=== PATIENT | female | born 2000 | race Caucasian/White ===

== ENCOUNTER 2019-03-05 18:35 | Emergency (ER) | payer BC, OTHER ==
--- OUTSIDE RECORDS SUMMARY | 2019-03-05 18:38 | XMS REPORT | Clinical Summary ---
:2000 Author Organization [facility] Address [address] [place] [address] Care Team Providers Name Role Phone Alejandro Jamison MD Primary Care Provider Allergies Active Allergy Reactions Severity Noted Date Comments Latex High 02/08/2017 Acetaminophen-Codeine High 02/08/2017 Medications Medication Sig Dispensed Refills Start Date End Date Status NORETHINDRONE-E.ESTRADIOL Take by mouth. 0 Active -IRON (LO LOESTRIN FE ORAL) Active Problems No known active problems Family History Relation Name Status Comments Father Alive Mother Alive Social History Tobacco Use Types Packs/Day Years Used Date Never Smoker Alcohol Use Drinks/Week oz/Week Comments No Sex Assigned at Date Recorded Not on file Job Start Date Occupation Industry Not on file Not on file Not on file Travel History Travel Start Travel End No recent travel history available. 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
[2019-03-05] MEDS ORDERED: NA CHLORIDE 0.9% 1,000 ML ONE ×2 (19:11→20:58)
[2019-03-05 19:49] LABS: Absolute Lymphocytes (CBC) 1.2 K/uL (0.7-4.9); Basophils % 0.6 % (0-1.3); Hematocrit 45.5 % (36.0-45.0); Lymphocytes % 23.3 % (15.3-44.8); MPV 9.2 fL (7.6-11.3); RBC Red Blood Cell Count 5.22 M/uL (3.86-4.86)
[2019-03-05 19:59] LABS: Protime INR 1.03
[2019-03-05 20:02] LABS: Urine Blood NEGATIVE (NEG); Urine Glucose NEGATIVE (NEG); Urine Protein NEGATIVE (NEG)
[2019-03-05 20:10] LABS: ALT/SGPT 29 U/L (12-78); AST/SGOT 15 U/L (15-37); Albumin 4.2 g/dL (3.4-5.0); Alkaline Phosphatase 47 U/L (45-117); BUN Blood Urea Nitrogen 10 mg/dL (7-18); Bicarbonate 28 mmol/L (21-32); Bilirubin Direct 0.1 mg/dL (0-0.2); Bilirubin Total 0.3 mg/dL (0.2-1.0); Glucose Level 151 mg/dL (74-106); Magnesium 1.9 mg/dL (1.8-2.4); NT PRO-BNP 11 pg/mL (<125); Potassium 3.9 mmol/L (3.5-5.1); Protein, Total 8.1 g/dL (6.4-8.2); Sodium Level 141 mmol/L (136-145); T3 Free 3.61 pg/mL (2.18-3.98); Troponin (Emerg Dept Use Only) < 0.02 ng/mL (0.0-0.045)
[2019-03-05 20:11] LABS: Barbiturates NEGATIVE (NEGATIVE); Benzodiazepines NEGATIVE (NEGATIVE); Cocaine NEGATIVE (NEGATIVE); METHAMPHETAM NEGATIVE (NEGATIVE); Methadone NEGATIVE (NEGATIVE); Opiates NEGATIVE (NEGATIVE); Phencyclidine NEGATIVE (NEGATIVE); THC Cannibis NEGATIVE (NEGATIVE)
--- NOTE | 2019-03-05 21:41 | ER ---
Nurse's Notes [facility] Name: Kathie Elliott Age: 18 yrs Sex: Female : 2000 Arrival Date: 03/05/2019 Time: 18:36 Bed 19 [facility] MD: Alejandro Jamison Diagnosis: Palpitations Presentation: 03/05 18:37 Presenting complaint: Palpitations, intermittent substernal chest pain, and SOB x 3-4 hb hrs. Denies cough/fever. Transition of care: patient was not received from another setting of care. Onset of symptoms was March 05, 2019. Risk Assessment: Do you want to hurt yourself or someone else? Patient reports no desire to harm self or others. Care prior to arrival: None. 18:37 Method Of Arrival: Ambulatory hb 18:37 Acuity: TITUS 3 hb 19:05 Initial Sepsis Screen: Does the patient meet any 2 criteria? HR > 90 bpm. Does the cc3 patient have a suspected source of infection? No. Patient's initial sepsis screen is negative. Triage Assessment: 19:05 General: Appears in no apparent distress. uncomfortable, Behavior is cooperative, cc3 appropriate for age, anxious. Pain: Denies pain. Respiratory: Reports shortness of breath at rest on exertion Onset: The symptoms/episode began/occurred since she was started on steroids on 02/17/19, the patient has mild shortness of breath. 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 - Social history:: Smoking status: Patient/guardian denies using tobacco. - Ebola Screening: : No symptoms or risks identified at this time. Screenin:05 Abuse screen: Denies threats or abuse. Denies injuries from another. Nutritional cc3 screening: No deficits noted. Tuberculosis screening: No symptoms or risk factors identified. Fall Risk Ambulatory Aid- None/Bed Rest/Nurse Assist (0 pts). Gait- Normal/Bed Rest/Wheelchair (0 pts) Mental Status- Oriented to own ability (0 pts). Assessment: 19:05 General: Appears in no apparent distress. uncomfortable, Behavior is cooperative, cc3 appropriate for age, anxious. Pain: Denies pain. Neuro: Level of Consciousness is awake, alert, obeys commands, Oriented to person, place, time, situation, Appropriate for age. Cardiovascular: Denies chest pain, Capillary refill < 3 seconds Patient's skin is warm and dry. Rhythm is regular. Respiratory: Airway is patent Respiratory effort is even, unlabored, Respiratory pattern is regular, symmetrical. GI: Abdomen is flat. : No signs and/or symptoms were reported regarding the genitourinary system. EENT: No signs and/or symptoms were reported regarding the EENT system. Derm: Skin is intact, is healthy with good turgor, Skin is pink, warm \T\ dry. normal. Musculoskeletal: Circulation, motion, and sensation intact. Range of motion: intact in all extremities. 19:05 Respiratory: Breath sounds are clear bilaterally. cc3 20:18 Reassessment: Patient appears in no apparent distress at this time. Patient and/or cc3 family updated on plan of care and expected duration. Pain level reassessed. Patient is alert, oriented x 3, equal unlabored respirations, skin warm/dry/pink. Patient denies pain at this time. 21:30 Reassessment: Patient appears in no apparent distress at this time. Patient and/or cc3 family updated on plan of care and expected duration. Pain level reassessed. Patient is alert, oriented x 3, equal unlabored respirations, skin warm/dry/pink. Patient denies pain at this time. Patient states feeling better. Patient states symptoms have improved. 22:00 Reassessment: Patient appears in no apparent distress at this time. Patient and/or cc3 family updated on plan of care and expected duration. Pain level reassessed. Patient is alert, oriented x 3, equal unlabored respirations, skin warm/dry/pink. PA Page discharged the patient home, no prescription given. IV cannula removed and patient left ER vitally stable and ambulatory with her mother. No valuables left in the patient's room. Patient denies pain at this time. Patient states feeling better. Patient states symptoms have improved. Vital Signs: 18:40 BP 136 / 92; Pulse 124; Resp 16; Temp 97.8; Pulse Ox 99% on R/A; Weight 54.43 kg; hb Height 5 ft. 7 in. (170.18 cm); Pain 5/10; 19:45 BP 124 / 87; Pulse 107; Resp 18 S; Pulse Ox 100% on R/A; cc3 20:15 BP 124 / 88; Pulse 118; Resp 18 S; Pulse Ox 100% on R/A; Pain 0/10; cc3 21:30 BP 122 / 90; Pulse 114; Resp 16 S; Pulse Ox 100% on R/A; Pain 0/10; cc3 22:00 BP 111 / 82; Pulse 110; Resp 18 S; Pulse Ox 100% on R/A; Pain 0/10; cc3 18:40 Body Mass Index 18.79 (54.43 kg, 170.18 cm) hb ED Course: 18:36 Patient arrived in ED. am2 18:37 Alejandro Jamison MD is Private Physician. am2 18:40 Triage completed. hb 18:40 Arm band placed on. hb 18:55 Umair Lopez PA is PHCP. cp 18:55 Bryn Morgan MD is Attending Physician. cp 19:02 Anu Ferrara is Primary Nurse. cc3 19:05 Patient has correct armband on for positive identification. Placed in gown. Bed in low cc3 position. Call light in reach. Side rails up X 1. campus monitor on. Pulse ox on. NIBP on. 19:30 Inserted saline lock: 20 gauge in right antecubital area, using aseptic technique. cc3 Blood collected. 21:40 Mich Montoya MD is Referral Physician. cp 22:00 No provider procedures requiring assistance completed. IV discontinued, intact, cc3 bleeding controlled, No redness/swelling at site. Pressure dressing applied. Administered Medications: 19:30 Drug: NS 0.9% 1000 ml Route: IV; Rate: 1 bolus; Site: right antecubital; cc3 20:20 Follow up: Response: No adverse reaction; IV Status: Completed infusion; IV Intake: cc3 1000ml 20:50 Drug: NS 0.9% 1000 ml Route: IV; Rate: 1 bolus; Site: right antecubital; cc3 21:40 Follow up: Response: No adverse reaction; IV Status: Completed infusion; IV Intake: cc3 1000ml Intake: 20:20 IV: 1000ml; Total: 1000ml. cc3 21:40 IV: 1000ml; Total: 2000ml. cc3 Outcome: 21:40 Discharge ordered by . cp 22:00 Discharged to home ambulatory, with family. cc3 22:00 Condition: stable 22:00 Discharge instructions given to patient, family, Instructed on discharge instructions, follow up and referral plans. Demonstrated understanding of instructions, follow-up care. 22:09 Patient left the ED. cc3 Signatures: Umair Lopez PA PA cp Baxter, Heather, RN RN hb Moreno, Amanda am2 Cordel, Charlene cc3 Corrections: (The following items were deleted from the chart) 20:54 20:15 BP 124 / 88; Pulse 107bpm; Resp 18bpm; Spontaneous; Pulse Ox 100% RA; cc3 cc3 22:48 20:15 BP 124 / 88; Pulse 118bpm; Resp 18bpm; Spontaneous; Pulse Ox 100% RA; cc3 cc3 22:48 21:30 BP 122 / 90; Pulse 114bpm; Resp 16bpm; Spontaneous; Pulse Ox 100% RA; cc3 cc3 22:48 22:00 BP 111 / 82; Pulse 110bpm; Resp 18bpm; Spontaneous; Pulse Ox 100% RA; cc3 cc3
--- NOTE | 2019-03-05 21:41 | EDPHYS ---
Physician Documentation [facility] Name: Kathie Elliott Age: 18 yrs Sex: Female : 2000 Arrival Date: 03/05/2019 Time: 18:36 Bed 19 Private MD: Alejandro Jamison ED Physician Bryn Morgan HPI: 03/05 19:00 This 18 yrs old Female presents to ER via Ambulatory with complaints of cp Breathing Difficulty, Palpitations. 19:00 The patient presents with a history of heart racing. cp 19:00 Context: The symptoms occur at rest. cp 19:00 Onset: The symptoms/episode began/occurred today, 4 hour(s) ago. cp 19:00 Duration: The patient or guardian reports a single episode, that is still ongoing. cp Associated signs and symptoms: Pertinent positives: chest pain, SOB. 19:00 Mother reports patient having similar episodes recently that they thought were due to cp to the oral prednisone patient was taking, but patient has not taken prednisone for about 1 week. Patient reports drinking 1 cup coffee today, denies use of drugs or drinking energy drinks. 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 - Social history:: Smoking status: Patient/guardian denies using tobacco. - Ebola Screening: : No symptoms or risks identified at this time. ROS: 19:05 Constitutional: Negative for body aches, chills, fever, poor PO intake. cp 19:05 Eyes: Negative for injury, pain, redness, and discharge. cp 19:05 ENT: Negative for drainage from ear(s), ear pain, sore throat, difficulty swallowing, difficulty handling secretions. 19:05 Cardiovascular: Positive for chest pain, palpitations, Negative for edema. 19:05 Respiratory: Positive for shortness of breath, Negative for cough, wheezing. 19:05 Abdomen/GI: Negative for abdominal pain, nausea, vomiting, and diarrhea. 19:05 Neuro: Negative for altered mental status, headache, numbness, syncope, tingling, weakness. 19:05 All other systems are negative. Exam: 19:10 ECG was reviewed by the Attending Physician. cp 19:12 Constitutional: The patient appears in no acute distress, alert, awake, cp non-diaphoretic, non-toxic, well developed, well nourished, anxious, tearful 19:12 Head/Face: Normocephalic, atraumatic. Eyes: Pupils equal round and reactive to light, cp extra-ocular motions intact. Lids and lashes normal. Conjunctiva and sclera are non-icteric and not injected. Cornea within normal limits. Periorbital areas with no swelling, redness, or edema. ENT: Nares patent. No nasal discharge, no septal abnormalities noted. Tympanic membranes are normal and external auditory canals are clear. Oropharynx with no redness, swelling, or masses, exudates, or evidence of obstruction, uvula midline. Mucous membranes moist. Neck: Trachea midline, no thyromegaly or masses palpated, and no cervical lymphadenopathy. Supple, full range of motion without nuchal rigidity, or vertebral point tenderness. No Meningismus. Chest/axilla: Normal chest wall appearance and motion. Nontender with no deformity. No lesions are appreciated. 19:12 Cardiovascular: Rate: tachycardic, Rhythm: regular, Heart sounds: murmur, not appreciated, Edema: is not appreciated, JVD: is not appreciated. 19:12 Respiratory: the patient does not display signs of respiratory distress, Respirations: normal, no use of accessory muscles, no retractions, no splinting, no tachypnea, labored breathing, is not present, Breath sounds: are clear throughout, no decreased breath sounds, no stridor, no wheezing. 19:12 Abdomen/GI: Inspection: abdomen appears normal, Palpation: abdomen is soft and non-tender, in all quadrants. 19:12 Back: pain, is absent, ROM is normal. 19:12 Neuro: Orientation: to person, place \T\ time. Mentation: is normal, Cerebellar function: is grossly normal, Motor: moves all fours, strength is normal, Sensation: is normal. Vital Signs: 18:40 BP 136 / 92; Pulse 124; Resp 16; Temp 97.8; Pulse Ox 99% on R/A; Weight 54.43 kg; hb Height 5 ft. 7 in. (170.18 cm); Pain 5/10; 19:45 BP 124 / 87; Pulse 107; Resp 18 S; Pulse Ox 100% on R/A; cc3 20:15 BP 124 / 88; Pulse 118; Resp 18 S; Pulse Ox 100% on R/A; Pain 0/10; cc3 21:30 BP 122 / 90; Pulse 114; Resp 16 S; Pulse Ox 100% on R/A; Pain 0/10; cc3 22:00 BP 111 / 82; Pulse 110; Resp 18 S; Pulse Ox 100% on R/A; Pain 0/10; cc3 18:40 Body Mass Index 18.79 (54.43 kg, 170.18 cm) hb MDM: 19:00 Patient medically screened. cp 21:40 Data reviewed: vital signs, nurses notes, lab test result(s), EKG, and as a result, I cp will discharge patient. 21:40 Test interpretation: by ED physician or midlevel provider: ECG. 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 Response to treatment: the patient's symptoms have markedly improved after treatment, and as a result, I will discharge patient. 03/05 19:01 Order name: Basic Metabolic Panel cp 03/05 19:01 Order name: CBC with Diff cp 03/05 19:01 Order name: LFT's cp 03/05 19:01 Order name: Magnesium cp 03/05 19:01 Order name: NT PRO-BNP cp 03/05 19:01 Order name: PT-INR cp 03/05 19:01 Order name: Troponin (emerg Dept Use Only) cp 03/05 19:01 Order name: UDS cp 03/05 19:01 Order name: TSH cp 03/05 19:01 Order name: T3 Free cp 03/05 19:01 Order name: D-Dimer cp 03/05 19:50 Order name: Urine Dipstick--Ancillary (enter results) ar 03/05 19:50 Order name: Urine --Ancillary (enter results) ar 03/05 19:50 Order name: CBC with Automated Diff; Complete Time: 20:41 EDMS 03/05 20:45 Interpretation: Normal except: RBC 5.22; HGB 15.8; HCT 45.5. cp 03/05 19:01 Order name: EKG; Complete Time: 19:03 03/05 19:01 Order name: Cardiac monitoring; Complete Time: 19:34 03/05 20:01 Order name: Protime (+INR); Complete Time: 20:41 EDMS 03/05 20:02 Order name: D-Dimer; Complete Time: 20:41 EDMS 03/05 20:03 Order name: Urine --Ancillary; Complete Time: 20:41 EDNM 03/05 20:03 Order name: Urine Dipstick-Ancillary; Complete Time: 20:41 EDNM 03/05 20:11 Order name: Basic Metabolic Panel; Complete Time: 20:41 EDMS 03/05 20:45 Interpretation: Normal except: GLUC 151; GFR 79. cp 03/05 20:11 Order name: Liver (Hepatic) Function; Complete Time: 20:41 EDNM 03/05 20:11 Order name: Troponin (Emerg Dept Use Only); Complete Time: 20:41 EDNM 03/05 20:11 Order name: NT PRO-BNP; Complete Time: 20:41 EDNM 03/05 20:11 Order name: T3 Free; Complete Time: 20:41 [facility] 03/05 20:12 Order name: Magnesium; Complete Time: 20:41 [facility] 03/05 20:12 Order name: Thyroid Stimulating Hormone; Complete Time: 20:41 [facility] 03/05 20:12 Order name: Urine Drug Screen; Complete Time: 20:41 EDNM 03/05 19:01 Order name: EKG - Nurse/Tech; Complete Time: 19:34 03/05 19:01 Order name: IV Saline Lock; Complete Time: 19:34 03/05 19:01 Order name: Labs collected and sent; Complete Time: 19:34 03/05 19:01 Order name: O2 Per Protocol; Complete Time: 19:34 cp 03/05 19:01 Order name: O2 Sat Monitoring; Complete Time: 19:34 cp 03/05 19:01 Order name: Urine Dipstick-Ancillary (obtain specimen); Complete Time: 19:47 cp 03/05 19:01 Order name: Urine Test (obtain specimen); Complete Time: 19:47 cp EC:10 Rate is 132 beats/min. Rhythm is regular. PA interval is normal. QRS interval is cp normal. QT interval is normal. Interpreted by me. Reviewed by me. Administered Medications: 19:30 Drug: NS 0.9% 1000 ml Route: IV; Rate: 1 bolus; Site: right antecubital; cc3 20:20 Follow up: Response: No adverse reaction; IV Status: Completed infusion; IV Intake: cc3 1000ml 20:50 Drug: NS 0.9% 1000 ml Route: IV; Rate: 1 bolus; Site: right antecubital; cc3 21:40 Follow up: Response: No adverse reaction; IV Status: Completed infusion; IV Intake: cc3 1000ml Disposition: 03/06 08:07 Co-signature as Attending Physician, Bryn Morgan MD I agree with the assessment and kdr plan of care. Disposition: 03/05/19 21:40 Discharged to Home. Impression: Palpitations. - Condition is Stable. - Discharge Instructions: Holter Monitoring, Palpitations. - Medication Reconciliation Form, Thank You Letter, Antibiotic Education, Prescription Opioid Use form. - Follow up: Mich Montoya MD; When: 1 - 2 days; Reason: Recheck today's complaints. - Problem is new. - Symptoms have improved. Signatures: Dispatcher [employer] EDMS Bryn Morgan MD MD kdr Umair Lopez PA PA cp Steph Lanier, ZAC RN Anu Ferrara cc3 Corrections: (The following items were deleted from the chart) 03/05 22:09 21:40 03/05/2019 21:40 Discharged to Home. Impression: Palpitations. Condition is cc3 Stable. Forms are Medication Reconciliation Form, Thank You Letter, Antibiotic Education, Prescription Opioid Use. Follow up: Mich Montoya; When: 1 - 2 days; Reason: Recheck today's complaints. Problem is new. Symptoms have improved. cp
[2019-03-05 22:35] VITALS: TEMP 97.8
[2019-03-05 22:37] VITALS: O2SAT 100
[2019-03-05 22:39] VITALS: BP 122/90
--- NOTE | 2019-03-06 10:33 | EKG ---
Test Date: 2019-03-05 Test Time: 18:58:51 Preparation Supervisor: AGA MEASUREMENT RESULTS: Intervals: Rate: 132 MN: 160 QRSD: 84 QT: 376 QTc: 557 [place]: P: 70 MN: 160 QRS: 95 T: 45 INTERPRETIVE STATEMENTS: Sinus tachycardia Rightward axis Nonspecific T wave abnormality Abnormal ECG No previous ECG available for comparison Electronically Signed On 03-06-19 10:31:35 CDT by Sinan Lubin
== END 2019-03-05 22:09 | disposition home or self-care (01) ==
LOC: ER 18:35
DX: R00.2 Palpitations (principal); Z88.6 Allergy status to analgesic agent; Z91.040 Latex allergy status
CPT/HCPCS: 96361; 93005; 85025; 80048; 36415; 83735; 81025; 85610; 85379; 80076; 80307 ×8; 84443; 81003; 84484; 84481; 83880; 96360; 99284; J7030 ×2

== ENCOUNTER → 2022-11-21 | Day surgery (SDC) | payer BC, OTHER ==
--- NOTE | 2022-11-21 11:02 | RAD REPORT ---
EXAM DESCRIPTION: Ultrasound-guided vacuum assisted right breast core biopsy CLINICAL HISTORY: Breast mass N63.12 COMPARISON: BREAST/AXILLA, COMPLETE dated 11/07/2022 FINDINGS: Informed consent was obtained and time-out was performed. The patient's right breast was prepped and draped in the usual sterile fashion. 1% lidocaine was used for local anesthetic purposes. Utilizing aseptic technique and ultrasound guidance, a 12 gauge vacuum assisted core biopsy device wa s used to obtain single core specimens through the mass of interest 12 o'clock right breast. A post b iopsy clip was then placed. All collected material was sent for cytology. Patient tolerated procedure well. IMPRESSION: Successful ultrasound guided vacuum assisted right breast mass biopsy.
== END ==
LOC: DS 09:37
PROVIDERS: ATTEND Obstetrics & Gynecology
DX: N63.12 Unspecified lump in the right breast, upper inner quadrant (principal)
CPT/HCPCS: 19083; 88305

== ENCOUNTER 2023-01-29 00:23 | Emergency (ER) | payer BC, OTHER ==
[2023-01-29 02:11] LABS: Absolute Lymphocytes (CBC) 2.8 K/uL (0.7-4.9); Hematocrit 40.3 % (36.0-45.0); Lymphocytes % 42.8 % (15.3-44.8); MCV 87.4 fL (80-100); MPV 8.6 fL (7.6-11.3); Platelets 261 thou/uL (152-406); RBC Red Blood Cell Count 4.62 M/uL (3.86-4.86)
[2023-01-29 02:15] LABS: ALT/SGPT 21 U/L (13-56); AST/SGOT 13 U/L (15-37); Albumin 3.4 g/dL (3.4-5.0); Alkaline Phosphatase 55 U/L (45-117); BUN Blood Urea Nitrogen 11 mg/dL (7-18); Bicarbonate 27 mEq/L (21-32); Bilirubin Total 0.2 mg/dL (0.2-1.0); Glomerular Filtration Rate 120 ml/min (=/>90); Glucose Level 98 mg/dL (74-106); Potassium 3.5 mEq/L (3.5-5.1); Protein, Total 7.3 g/dL (6.4-8.2); Sodium Level 137 mEq/L (136-145)
[2023-01-29 02:16] LABS: Bilirubin Direct < 0.1 mg/dL (0-0.2); Bilirubin Indirect, Calculated ND mg/dL (0.2-0.8)
[2023-01-29 02:26] LABS: Specific Gravity 1.016 (1.005-1.030)
[2023-01-29 02:28] LABS: Specific Gravity 1.016 (1.005-1.030); Urine Bacteria None Seen /HPF (<20); Urine Bilirubin NEGATIVE (Negative); Urine Blood Trace (Negative); Urine Clarity Extremely Turbid (Clear); Urine Color Light-Yellow (Yellow); Urine Glucose NEGATIVE (Negative); Urine Protein NEGATIVE (Negative); Urine RBC <5 /HPF (None Seen); Urine Urobilinogen Normal (Normal); Urine pH 7.5 (5.0-7.0)
[2023-01-29 02:32] LABS: Barbiturates NEGATIVE (NEGATIVE); Benzodiazepines POSITIVE (NEGATIVE); Cocaine NEGATIVE (NEGATIVE); METHAMPHETAM NEGATIVE (NEGATIVE); Methadone NEGATIVE (NEGATIVE); Opiates NEGATIVE (NEGATIVE); Phencyclidine NEGATIVE (NEGATIVE); THC Cannibis NEGATIVE (NEGATIVE)
[2023-01-29 02:44] LABS: SARS-CoV-2 Antigen Rapid Res Negative (Negative)
--- NOTE | 2023-01-29 04:36 | EDPHYS ---
Physician Documentation [facility] Name: Kathie Elliott Age: 22 yrs Sex: Female : 2000 Arrival Date: 01/29/2023 Time: 00:23 Bed 7 Private MD: ED Physician Aureliano Santoyo HPI: 01/29 02:09 This 22 yrs old Female presents to ER via Ambulatory with complaints of NOT FEELING kb WELL. 02:09 Pt reports her psychiatrist changed her medication 2 weeks ago and since then she has kb had bad anxiety and depression. States she got very scared today because she was having suicidal thoughts and was going to overdose to kill herself. States she doesn't want to kill herself but had to come in because she "was going to take the whole bottle of pills even though she doesn't want to .". 02:11 The patient presents to the emergency department with anxiety, depression, suicide kb ideation, and the patient has a plan, to overdose with medications. Onset: The symptoms/episode began/occurred last week. Associated signs and symptoms: Pertinent positives; anxiety, depression, suicide ideation. Severity of symptoms: At their worst the symptoms were moderate in the emergency department the symptoms are unchanged. The patient has experienced similar episodes in the past. The patient has not recently seen a physician. 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 - Social history:: Smoking status: Patient denies any tobacco usage or history of. ROS: 02:08 Constitutional: Negative for fever, chills, and weight loss. kb 02:08 Psych: Positive for anxiety, depression, suicidal ideation. 02:08 All other systems are negative. Exam: 01:42 Constitutional: This is a well developed, well nourished patient who is awake, alert, kb and in no acute distress. Head/Face: Normocephalic, atraumatic. ENT: Moist Mucous membranes Cardiovascular: Regular rate and rhythm with a normal S1 and S2. No gallops, murmurs, or rubs. No pulse deficits. Respiratory: Respirations even and unlabored. No increased work of breathing. Talking in full sentences Abdomen/GI: Soft, non-tender. No distention Skin: Warm, dry with normal turgor. Normal color. MS/ Extremity: Pulses equal, no cyanosis. Neurovascular intact. Full, normal range of motion. Neuro: Awake and alert, GCS 15, oriented to person, place, time, and situation. Moves all extremities. Normal gait. 01:42 ECG was reviewed by the Attending Physician. 02:08 Psych: Behavior/mood is cooperative, anxious, Affect is animated, Oriented to person, kb place, time, Patient having thoughts of suicide. Plan for suicide is overdose 04:32 Psych: Patient having thoughts of suicide. sp4 Vital Signs: 00:27 Weight 68.04 kg; Height 5 ft. 7 in. ; Pain 6/10; vc1 00:42 BP 119 / 118; Pulse 83; Resp 18; Temp 98.4; Pulse Ox 100% ; vc1 02:50 BP 108 / 58; Pulse 89; Resp 18; Pulse Ox 100% on R/A; oe 00:27 Body Mass Index 23.49 (68.04 kg, 170.18 cm) vc1 00:27 Pain Scale: Adult vc1 MDM: 00:25 Patient medically screened. kb 02:12 Differential diagnosis: drug withdrawal. depression, acute stress reaction. Data kb reviewed: vital signs, nurses notes. Transition of care: After a detail discussion of the patient's case, care is transferred to Aureliano Santoyo MD. 04:32 Differential Diagnosis altered mental status. Data reviewed: lab test result(s). sp4 Consideration of Admission/Observation Escalation of care including admission/observation considered. ED course: On repeat evaluation patient was offered admission to psychiatric hospital. Patient states that she is feeling better and denies any suicide plans, patient states that her thoughts have been ongoing and are chronic. At this time patient denies any suicidal intent. Patient reports that he has psychiatrist Dr. Shirley Yanes . ED course: Patient again declined admission to psychiatric hospital and wishes to be released home, will provide single dose p.o. Valium for anxiety at this time. Will advise close follow-up with psychiatrist on outpatient basis for management of anxiety and depression. Will advise return to the emergency room in case patient develops suicidal ideation or plan.. 04:47 ED course: On repeat assessment patient broke down and started crying and reports that sp4 she is not sure what to do. At this time we will consider emergent psychiatric hospitalization secondary to the uncertainty with respect to patient's problems. And also secondary to persistent suicidal thoughts. . 05:34 ED course: [facility] has accepted the patient.. sp4 01/29 00:32 Order name: Acetaminophen; Complete Time: 02:22 kb 01/29 00:32 Order name: Basic Metabolic Panel; Complete Time: 02:22 kb 01/29 00:32 Order name: CBC with Diff; Complete Time: 02:12 kb 01/29 00:32 Order name: ETOH Level; Complete Time: 02:12 kb 01/29 00:32 Order name: Hepatic Function; Complete Time: 02:22 kb 01/29 00:32 Order name: PT-INR; Complete Time: 02:03 kb 01/29 00:32 Order name: Test, Urine; Complete Time: 02:31 kb 01/29 00:32 Order name: Ptt, Activated; Complete Time: 02:03 kb 01/29 00:32 Order name: Salicylate; Complete Time: 02:12 kb 01/29 00:32 Order name: Urinalysis w/ reflexes; Complete Time: 02:31 kb 01/29 00:32 Order name: Urine Drug Screen; Complete Time: 02:34 kb 01/29 01:46 Order name: SARS-COV-2 Antigen Rapid; Complete Time: 04:05 kb 01/29 00:32 Order name: EKG; Complete Time: 00:33 kb 01/29 00:32 Order name: EKG - Nurse/Tech; Complete Time: 01:27 kb 01/29 00:32 Order name: IV Saline Lock; Complete Time: 02:00 kb 01/29 00:32 Order name: Labs collected and sent; Complete Time: 02:00 kb 01/29 00:32 Order name: Suicide Screening ([place]); Complete Time: 02:00 kb 01/29 02:07 Order name: Vital Signs; Complete Time: 02:51 kb EC:42 Rate is 82 beats/min. Rhythm is regular. QRS [place] is Normal. AR interval is normal at kb 158 msec. QRS interval is normal at 84 msec. QT interval is normal at 422 msec. Administered Medications: 04:55 Drug: Diazepam PO 5 mg Route: PO; jb4 Disposition: 02:59 Co-signature as Attending Physician, Aureliano Santoyo MD I agree with the assessment sp4 and plan of care. I reviewed the patient's care provided by Advanced Practice Provider \\T\\ agree w/ the diagnosis \\T\\ care plan. I personally saw the pt \\T\\ performed a substantive portion of the visit, incldng all aspects of the (History/Exam/Medical Decision Making). Disposition Summary: 01/29/23 04:47 Transfer Ordered Transfer Location: [facility] sp4 Reason: Higher level of care sp4 Condition: Stable(01/29/23 04:47) sp4 Problem: new(01/29/23 04:47) sp4 Symptoms: are unchanged(01/29/23 04:47) sp4 Accepting Physician: Attending psychiatrist(01/29/23 06:57) geremias Diagnosis - Anxiety disorder, unspecified(01/29/23 04:47) sp4 - Other recurrent depressive disorders(01/29/23 04:47) sp4 Discharge Instructions: - Discharge Summary Sheet rv1 Forms: - SBAR form rv1 - Medication Reconciliation Form sp4 Signatures: Dispatcher [employer] EDJesi Deleon, LIZETTE-Carlota CHIEF COUNSEL-Adrianne Miller RN RN kl Bryson, James, RN RN jbMariluz Kaufman RN RN vc1 Aureliano Santoyo MD MD sp4 Corrections: (The following items were deleted from the chart) 04:46 04:36 Home sp4 sp4 04:46 04:36 new sp4 sp4 04:46 04:36 have improved sp4 sp4 04:46 04:36 Stable sp4 sp4 04:46 04:36 Other recurrent depressive disorders sp4 sp4 04:46 04:36 Anxiety disorder, unspecified sp4 sp4 05:34 04:47 Attending psychiatrist mitra sp4 06:57 05:34 Attending psychiatrist mitra
--- NOTE | 2023-01-29 04:36 | ER ---
Nurse's Notes [facility] Name: Kathie Elliott Age: 22 yrs Sex: Female : 2000 Arrival Date: 01/29/2023 Time: 00:23 Bed 7 Private MD: Diagnosis: Anxiety disorder, unspecified;Other recurrent depressive disorders Presentation: 01/29 00:27 Chief complaint: Patient states: My Psychiatrist changed my medication a week ago, we vc1 tapered it down over 4 weeks. This is my first full week with out it. I feel extremely anxious and I'm having suicidal thoughts and it scares me because I don't want to hurt myself. 00:27 Coronavirus screen: Vaccine status: Patient reports receiving the 2nd dose of the covid vc1 vaccine. Arrively Client denies travel out of the [place] in the last 14 days. At this time, the client does not indicate any symptoms associated with coronavirus-19. Ebola Screen: Patient negative for fever greater than or equal to 101.5 degrees Fahrenheit, and additional compatible Ebola Virus Disease symptoms Patient denies exposure to infectious person. Patient denies travel to an Ebola-affected area in the 21 days before illness onset. No symptoms or risks identified at this time. Risk Assessment: Do you want to hurt yourself or someone else? Patient reports desire/thoughts of hurting themselves or someone else. Provider notified. Onset of symptoms was January 24, 2023. 00:27 Method Of Arrival: Ambulatory vc1 00:27 Acuity: TITUS 2 vc1 00:45 Initial Sepsis Screen: Does the patient meet any 2 criteria? No. Patient's initial vc1 sepsis screen is negative. Does the patient have a suspected source of infection? No. Patient's initial sepsis screen is negative. Triage Assessment: 00:36 General: Appears distressed, uncomfortable, Behavior is anxious, crying. General: vc1 Appears Behavior is. Pain: Complains of pain in top of head Pain does not radiate. Pain currently is 6 out of 10 on a pain scale. Quality of pain is described as dull, sharp, stabbing, Pain began few weeks. EENT: No deficits noted. No signs and/or symptoms were reported regarding the EENT system. Neuro: Reports headache frontal area. Cardiovascular: No deficits noted. Respiratory: Airway is patent Respiratory effort is even, unlabored, Respiratory pattern is regular, symmetrical. GI: No deficits noted. No signs and/or symptoms were reported involving the gastrointestinal system. : No deficits noted. No signs and/or symptoms were reported regarding the genitourinary system. Derm: No deficits noted. No signs and/or symptoms reported regarding the dermatologic system. Musculoskeletal: No deficits noted. No signs and/or symptoms reported regarding the musculoskeletal system. 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 - Social history:: Smoking status: Patient denies any tobacco usage or history of. Screenin:41 Abuse screen: Denies threats or abuse. Nutritional screening: No deficits noted. vc1 Tuberculosis screening: No symptoms or risk factors identified. Assessment: 00:46 General: Appears in no apparent distress. uncomfortable, Behavior is cooperative, jb4 anxious. Pain: Denies pain. Neuro: Level of Consciousness is awake, alert, obeys commands, Oriented to person, place, time, situation. Cardiovascular: Patient's skin is warm and dry. Respiratory: Airway is patent Respiratory effort is even, unlabored, Respiratory pattern is regular, symmetrical. GI: No signs and/or symptoms were reported involving the gastrointestinal system. : No signs and/or symptoms were reported regarding the genitourinary system. EENT: No signs and/or symptoms were reported regarding the EENT system. Derm: Skin is intact, Skin is pink, warm \\T\\ dry. Musculoskeletal: Circulation, motion, and sensation intact. Range of motion: intact in all extremities. 02:00 Reassessment: Patient appears in no apparent distress at this time. Patient and/or jb4 family updated on plan of care and expected duration. Pain level reassessed. Patient is alert, oriented x 3, equal unlabored respirations, skin warm/dry/pink. 03:00 Reassessment: Patient appears in no apparent distress at this time. Patient and/or jb4 family updated on plan of care and expected duration. Pain level reassessed. Patient is alert, oriented x 3, equal unlabored respirations, skin warm/dry/pink. 04:00 Reassessment: Patient appears in no apparent distress at this time. Patient and/or jb4 family updated on plan of care and expected duration. Pain level reassessed. Patient is alert, oriented x 3, equal unlabored respirations, skin warm/dry/pink. 04:40 Reassessment: Pt became very anxious and started crying. Stating" I don't know what to jb4 do!" pt asked if she felt safe to go home or if she wanted to be transferred pt responds " I don't know. I don't know what I should do." at this point ER physician recommended to pt to try inpatient care and and be transferred to psychiatric facility. Pt agreed to transfer. 05:39 Reassessment: Patient appears in no apparent distress at this time. Patient and/or jb4 family updated on plan of care and expected duration. Pain level reassessed. Patient is alert, oriented x 3, equal unlabored respirations, skin warm/dry/pink. Report given to Ap at [facility], and Mirna at [facility]. Psych: 00:38 Painter Suicide Severity Screening: In the past month, have you wished you were vc1 or wished you could go to sleep and not wake up? Patient responds "yes." Based off the client's responses additional C-SSRS screening is required. "In the past month, have you actually had any thoughts of killing yourself?" Patient responds "yes." Based off the client's response additional Painter suicide severity screening questions to be further documented on paper forms. Thought about finishing bottle of xanax "In your lifetime, have you ever done anything, started to do anything, or prepared to do anything to end your life?" Patient responds "no.". Subjective: Patient's mood is sad, Delusions are denied, Hallucinations are auditory, While trying to fall asleep hearing a clap on both sides of ears Having thoughts of suicide. Plan for suicide is finish the bottle of xanax. Objective: Patient is cooperative, Speech is normal, soft, Patient has mutilated themselves by In the past used to cut herself. Patient uses Occaisionally. Commitment: Patient will be an involuntary commitment. 01:37 Interventions: Removed personal items and placed in bag. Patient placed in hospital vc1 gown. Searched person for dangerous items. Urine collected and sent for urine drug test. Belonging list filled out. Safety Checks: Personal items have been removed. Door is open. brother. Vital Signs: 00:27 Weight 68.04 kg; Height 5 ft. 7 in. ; Pain 6/10; vc1 00:42 BP 119 / 118; Pulse 83; Resp 18; Temp 98.4; Pulse Ox 100% ; vc1 02:50 BP 108 / 58; Pulse 89; Resp 18; Pulse Ox 100% on R/A; oe 00:27 Body Mass Index 23.49 (68.04 kg, 170.18 cm) vc1 00:27 Pain Scale: Adult vc1 ED Course: 00:25 Patient arrived in ED. kj1 00:25 [facility] kb 00:25 Aureliano Santoyo MD is Attending Physician. kb 00:35 Triage completed. vc1 00:38 Arm band placed on right wrist. vc1 02:00 Inserted saline lock: 20 gauge in left antecubital area, using aseptic technique. Blood oe collected. 04:27 Shmuel Finnegan, RN is Primary Nurse. jb4 04:35 Joaquín Goff MD is Referral Physician. sp4 04:47 Faxed pt clinicals to the following facilities for placement; [address], [facility], [facility]. 05:20 pt accepted to [facility] by Dr. Villegas. rv1 Administered Medications: 04:55 Drug: Diazepam PO 5 mg Route: PO; jb4 Outcome: 04:36 Discharge ordered by . sp4 04:47 ER care complete, transfer ordered by . sp4 06:57 Patient left the ED. kl Signatures: Jesi Harvey FNP-C FNP-Adrianne Miller RN RN kl Bryson, James, RN RN jb4 Alejandro Richter oe Gaby Harvey kj1 Mariluz Marques RN RN vc1 Karrie Woodson rv1 Aureliano Santoyo MD MD sp4 Corrections: (The following items were deleted from the chart) 02:52 02:45 BP 108 / 58; Pulse 76bpm; Resp 16bpm; Pulse Ox 100% RA; jb4 jb4
[2023-01-29] MEDS ORDERED: DIAZEPAM 5 MG TABLET ONE (05:00)
[2023-01-29 07:12] VITALS: TEMP 98.4; O2SAT 100
[2023-01-29 07:18] VITALS: BP 108/58
--- NOTE | 2023-01-29 17:02 | EKG ---
Test Date: 2023-01-29 Test Time: 01:20:52 Press Brake Operator: PERLA MEASUREMENT RESULTS: Intervals: Rate: 82 DE: 158 QRSD: 84 QT: 362 QTc: 422 [place]: P: 60 DE: 158 QRS: 87 T: 55 INTERPRETIVE STATEMENTS: Normal sinus rhythm Normal ECG Compared to ECG 03/05/2019 18:58:51 Sinus tachycardia no longer present Right-axis deviation no longer present T-wave abnormality no longer present Electronically Signed On 01-29-23 17:00:59 CDT by Kannan Trujillo
== END 2023-01-29 06:57 ==
LOC: ER 00:23
DX: F33.8 Other recurrent depressive disorders (principal); Z20.822 Contact with and (suspected) exposure to COVID-19; Z88.5 Allergy status to narcotic agent; Z91.040 Latex allergy status; Z91.048 Other nonmedicinal substance allergy status
CPT/HCPCS: 36415; 80048; 80076; 80143; 80179; 80307; 81001; 81025; 82077; 85025; 85610; 85730; 87811; 93005; 99284

== ENCOUNTER → 2024-01-16 | Day surgery (SDC) | payer BC, OTHER ==
[2024-01-13 09:41] LABS: Absolute Eosinophils 0.3 K/uL (0-0.5); Absolute Lymphocytes (CBC) 1.4 K/uL (0.7-4.9); Absolute Monocytes 0.5 K/uL (0.1-1.3); Absolute Neutrophil 4.2 K/uL (1.8-8.0); Basophils % 0.6 % (0-1.3); Eosinophils % 4.8 % (0-4.4); Hematocrit 39.5 % (36.0-45.0); Hemoglobin 12.9 g/dL (12.0-15.0); Lymphocytes % 21.8 % (15.3-44.8); MCH 28.5 pg (27.0-35.0); MCHC 32.6 g/dL (32.0-36.0); MCV 87.3 fL (80-100); MPV 9.3 fL (7.6-11.3); Monocytes % 7.6 % (3.3-12.3); Neutrophils % 65.2 % (41.7-73.7); Platelets 270 thou/uL (152-406); RBC Red Blood Cell Count 4.52 M/uL (3.86-4.86); Red Cell Distribution Width 13.7 % (12.1-15.2)
[2024-01-13 10:00] LABS: Specific Gravity > 1.030 (1.005-1.030); Urine Bacteria None Seen /HPF (<20); Urine Bilirubin NEGATIVE (Negative); Urine Blood 3+ (OVER) (Negative); Urine Clarity Extremely Turbid (Clear); Urine Color Yellow (Yellow); Urine Culture Reflex Order NOT NEEDED; Urine Glucose NEGATIVE (Negative); Urine Ketones NEGATIVE (Negative); Urine Microscopic Reflex YN ORDER UMIC; Urine Mucus 4+ /HPF (None Seen); Urine Nitrite NEGATIVE (Negative); Urine Protein 1+ (Negative); Urine RBC 21-50 /HPF (None Seen); Urine Urobilinogen Normal (Normal); Urine WBC <5 /HPF (<5); Urine pH 5.5 (5.0-7.0)
--- NOTE | 2024-01-13 12:29 | EKG ---
Test Date: 2024-01-13 Test Time: 09:07:[address]: MART MEASUREMENT RESULTS: Intervals: Rate: 81 ID: [id number] QRSD: 80 QT: 356 QTc: 413 [place]: P: 59 ID: [id number] QRS: 85 T: 63 INTERPRETIVE STATEMENTS: Normal sinus rhythm Normal ECG Compared to ECG 01/29/2023 01:20:52 No significant changes Electronically Signed On 01-13-24 12:28:30 CDT by Kannan Trujillo
[~2024-01-16] MED LIST: FAMOTIDINE 20 MG/2 ML VIAL IV ONE; FENTANYL CITR 100 MCG/2 ML ONE; GLYCOPYRROLATE 0.2 MG/ML SYR ONE; KETOROLAC 30 MG/ML INJ ONE; LIDOCAINE 2% MPF 5 ML VIAL ONE; METHYLENE BLUE 1% 10 ML VIAL ONE; MIDAZOLAM HCL 2 MG/2 ML INJ ONE; NA CHLORIDE 0.9% 1,000 ML ONE; NEOSTIGMINE 1 MG/ML -10 ML VIAL ONE; ONDANSETRON 4 MG/2 ML VIAL ONE; ROCURONIUM 50 MG/5 ML VIAL IV ONE; SUCCINYLCHOLINE 20 MG/ML (10 ML) IV ONE; SUGAMMADEX SODIUM 200 MG/2 ML VIAL IV ONE; dexAMETHasone 4 MG/ML VIAL ONE; propofoL 200 MG/20 ML VIAL IV ONE
[2024-01-16] MEDS: Ringers Lactate 1,000 ML IV ONE ×2 (09:35→12:30)
[2024-01-16] MEDS: SCOPOLAMINE HYDROBROMIDE PATCH TD ONE (09:39)
[2024-01-16] MEDS: CEFAZOLIN SODIUM 2 GM/VIAL ONE (11:13)
[2024-01-16] MEDS: BUPIVACAINE 0.25% PF 30 ML VIAL ONE (11:18)
[2024-01-16] MEDS: HYDROMORPHONE HCL 1 MG/ML INJ ONE ×2 (13:19→13:29)
[2024-01-16] MEDS: PROMETHAZINE INJ 25 MG/ML AMP ONE (14:00)
[2024-01-16] MEDS: IBUPROFEN 200 MG TAB PO ONE (14:01)
[2024-01-16] MEDS: IBUPROFEN 400 MG TAB ONE (14:01)
[2024-01-16 14:10] VITALS: BP 119/76; TEMP 97.1; O2SAT 100
[2024-01-17 09:43] LABS: Urine Specific Gravity/Preg 1.025 (1.005-1.030)
== END ==
LOC: OR 08:56
PROVIDERS: ATTEND Obstetrics & Gynecology
PROC: 3E1P88X Irrigation of Female Reproductive using Irrigating Substance, Via Natural or Artificial Opening Endoscopic, Diagnostic (ICD-10-PCS; 2024-01-16)
PROC: 0UDB8ZZ Extraction of Endometrium, Via Natural or Artificial Opening Endoscopic (ICD-10-PCS; principal; 2024-01-16 10:00)
PROC: 0WBF4ZZ Excision of Abdominal Wall, Percutaneous Endoscopic Approach (ICD-10-PCS; 2024-01-16 10:00)
PROC: 0TN74ZZ Release Left Ureter, Percutaneous Endoscopic Approach (ICD-10-PCS; 2024-01-16 10:00)
DX: N92.0 Excessive and frequent menstruation with regular cycle (principal); N93.0 Postcoital and contact bleeding; R10.2 Pelvic and perineal pain; N94.6 Dysmenorrhea, unspecified; F32.A Depression, unspecified
CPT/HCPCS: 58558; 58662; 50949; 58350; 93005; 85025; 81001; 36415; 86900; 86850; 81025; 86901; 88305; J2550; J2704; J1100; J2710; J2001; J2250; J3010 ×3; J1170 ×2; J2405; J7120 ×2; J7030